=== PATIENT | male | born 1980 | race Caucasian/White ===

== ENCOUNTER 2017-09-13 11:25 | Emergency (ER) | payer OTHER ==
[~2017-09-13] VITALS: Ht 188 cm; Wt 132.5 kg
[~2017-09-13 11:25] MED LIST: AMOX875T PO
[2017-09-13 11:26] VITALS: BP 136/92
[2017-09-13] MEDS ORDERED: LIDOCAINE 1%, 20ML ONE (11:49)
[2017-09-13] MEDS ORDERED: LIDOCAINE 1%, 20ML INFIL ONE (12:00)
== END 2017-09-13 12:29 | disposition home or self-care (01) ==
LOC: ED 12:15
DX: L03.311 Cellulitis of abdominal wall (principal); L02.211 Cutaneous abscess of abdominal wall
CPT/HCPCS: 10060

== ENCOUNTER 2018-12-19 20:43 | Emergency (ER) | payer OTHER ==
[~2018-12-19] VITALS: Ht 188 cm; Wt 119.6 kg
[2018-12-19 20:46] VITALS: BP 104/68
[2018-12-19] MEDS ORDERED: HYDROcodone/APAP 5/325 TABLET ONE ×2 (21:25→21:29)
[2018-12-19] MEDS ORDERED: HYDROcodone/APAP 5/325 TABLET PO ONE (21:30)
--- NOTE | 2018-12-19 21:39 | NUR ---
PT RETURNS FROM RADIOLOGY, MEDICATED PER ORDER.
== END 2018-12-19 23:00 | disposition home or self-care (01) ==
LOC: ED 22:11
DX: M70.21 Olecranon bursitis, right elbow (principal); E11.9 Type 2 diabetes mellitus without complications; Y93.89 Activity, other specified
CPT/HCPCS: 29105; 71046; 99283

== ENCOUNTER 2020-02-12 20:58 | Emergency (ER) | payer OTHER ==
[~2020-02-12] VITALS: Ht 188 cm; Wt 124.6 kg
[2020-02-12] MEDS ORDERED: EMPA1TAB17 PO (21:24)
[2020-02-12] MEDS ORDERED: ATOR-2 PO (21:24)
--- NOTE | 2020-02-12 21:25 | NUR ---
THIS IS A 39 YO MALE COMING IN FOR RED LESION LOCATED SUPRAPUBICALLY, UNDER UMBILLICUS, LESION HAS BEEN PRESENT FOR THE PAST 3-4 DAYS, STATES "SOMETHING LIKE THIS HAS HAPPENED MANY TIMES BEFORE AND THEY'VE LANCED IT IN THE PAST BUT THIS ONE LOOKS DIFFERENT". HX OF DIABETES. BLANCHABLE REDNESS NOTED, TENDER TO PALPATION, SCARRING LOCATED UNDER LESION FROM PREVIOUS LANCING. DENIES N/V/D, DENIES ANY CRAMPING, PAIN IS DESCIBED MORE SUPERFICIAL. SPO2 AND BP MONITORING IN PLACE. CALL LIGHT IN REACH.
[2020-02-12 21:55] LABS: BASOPHILS # (AUTO) 0.05 x10^3/uL (0-0.1); BASOPHILS % (AUTO) 1 % (0-1); EOSINOPHILS # (AUTO) 0.19 x10^3/uL (0-0.4); EOSINOPHILS % (AUTO) 2 % (1-7); LYMPHOCYTES # (AUTO) 3.07 x10^3/uL (1-3.4); LYMPHOCYTES % (AUTO) 36 % (22-44); MD NO; MEAN CORPUSCULAR HEMOGLOBIN 29.3 pg (27.5-34.5); MEAN CORPUSCULAR HGB CONC 33.5 g/dL (33.2-36.2); MEAN CORPUSCULAR VOLUME 87.5 fL (81-97); MEAN PLATELET VOLUME 8.6 fL (7.4-10.4); MONOCYTES # (AUTO) 0.62 x10^3/uL (0.2-0.8); MONOCYTES % (AUTO) 7 % (2-9); NEUTROPHILS # (AUTO) 4.55 x10^3/uL (1.8-6.8); NEUTROPHILS % (AUTO) 54 % (42-75); PLATELET COUNT 281 x10^3/uL (130-400); RED BLOOD COUNT 4.92 x10^6/uL (4.38-5.82); RED CELL DISTRIBUTION WIDTH 13.7 % (9.4-14.8)
[2020-02-12 22:05] LABS: ALBUMIN 3.2 g/dL (3.4-5.0); ANION GAP 10 mmol/L (5-15); CALCIUM 8.3 mg/dL (8.5-10.1); CHLORIDE 111 mmol/L (98-107); CREATININE 0.75 mg/dL (0.7-1.3)
--- NOTE | 2020-02-12 22:27 | NUR ---
PATIENT IN ULTRASOUND
[2020-02-12] MEDS ORDERED: LIDOCAINE-MPF 1%, 5ML ONE (22:55)
[2020-02-12] MEDS ORDERED: LIDOCAINE 1%, 10ML INFIL ONE (23:00)
--- NOTE | 2020-02-12 23:01 | NUR ---
I&D WITH LIDO SET UP AT BEDSIDE
[2020-02-12] MEDS ORDERED: CEPHALEXIN 500 MG CAPSULE ONE (23:25)
[2020-02-12] MEDS ORDERED: SULFAMETH./TRIMETHOPRIM DS 800MG/160MG TABLET ONE (23:25)
[2020-02-12 23:30] VITALS: BP 121/81
[2020-02-12] MEDS ORDERED: CEPHALEXIN 500 MG CAPSULE PO ONE (23:30)
[2020-02-12] MEDS ORDERED: SULFAMETH./TRIMETHOPRIM DS 800MG/160MG TABLET PO ONE (23:30)
--- NOTE | 2020-02-12 23:30 | NUR ---
PATIENT MEDICATED PER EMAR, TOLERATED WELL. I&D COMPLETED.
--- NOTE | 2020-02-12 23:42 | NUR ---
Patient given discharge instructions and they have confirmed that they understand the instructions. Patient ambulatory with steady gait.
== END 2020-02-12 23:52 | disposition home or self-care (01) ==
LOC: ED 23:46
DX: L02.211 Cutaneous abscess of abdominal wall (principal); L03.311 Cellulitis of abdominal wall; E11.9 Type 2 diabetes mellitus without complications
CPT/HCPCS: 10060; 36415; 80048; 82040; 85025; 99284